=== PATIENT | female | born 1940 | race Caucasian/White ===

== ENCOUNTER 2016-06-05 11:56 | Inpatient (IN) | payer BC, OTHER ==
[~2016-06-05] VITALS: Ht 162.6 cm; Wt 44.7 kg
--- NOTE | ~2016-06-05 | EKG ---
[address] [employer] [place] [address] ELECTROCARDIOGRAM REPORT Name: LORRI ALVAREZ INGRID Room #: 215-P DIS IN M.R.#: [id number] Admission: 06/05/16 Attend Phys: Thee Zavala MD Discharge: 06/06/16 Date of : 44 Report #: [id number] THIS REPORT FOR: //name// 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 : 1940 Requested By: Emeka Kwon Order Number: [id number] MD: Emeka Kwon Measurements Intervals [place] Rate: 76 P: 83 FL: 146 QRS: 61 QRSD: 90 T: 49 QT: 419 QTc: 472 Interpretive Statements Sinus rhythm Minimal ST depression, anterolateral leads Compared to ECG 05/01/2015 17:58:56 Sinus rhythm has replaced atrial fibrillation Electronically Signed On 06-07-2016 8:10:50 CDT by Emeka Kwon [email or web address] <ELECTRONICALLY SIGNED> By: Emeka Kwon MD, [facility] 06/07/16 0810 0656 [id number] Emeka Kwon MD, [facility] /EPI
--- NOTE | ~2016-06-05 | H ---
[facility] [place] [address] HISTORY AND PHYSICAL Name: LORRI ALVAREZ Room #: 215-P ADM IN M.R.#: [id number] Admission: 06/05/16 Attend Phys: Thee Zavala MD Discharge: Date of : 44 Report #: [id number] THIS REPORT FOR: //name// CC: Reynaldo Zavala DATE OF SERVICE: 06/05/2016 CHIEF COMPLAINT: Dizziness and near syncope. HISTORY OF PRESENT ILLNESS: The patient is a 76-year-old female with history of hypertension, COPD, anxiety, chronic back pain, presented to the emergency room complaining of neck pain and dizziness. The patient stated that she has had this on and off neck pain, radiating down into her right shoulder. This started this morning after waking up. She felt like she might have slept wrong on her neck. On arrival to the emergency room, the patient was found to be in atrial fibrillation with rapid ventricular rate. Her initial heart rate was 180 per minute. According to the patient, and the patient's daughter, she has had nausea and vomiting over the last few days. No history of any diarrhea. She has had some mild abdominal discomfort. The patient has also had on and off dizziness, primarily when she stands up. She has had some near syncopal episode, but no loss of consciousness. No history of any chest pain. She denies any fever or chills to me. She has had chronic back pain with surgery and back. She has had a course of epidural injection. Last epidural injection was 3 weeks ago. PAST MEDICAL HISTORY: Significant for pancreatitis. She had macular degeneration. She is blind in both eyes, but worse in the left eye. History of glaucoma. She has history of COPD, history of spinal stenosis surgery, history of hysterectomy, appendectomy. She had a stomach surgery for a hole in the esophagus. Left hand surgery. She has history of depression and anxiety, tonsillectomy, nasal polyp removal, arthritis, kidney stone removal, left leg stent, which was placed for peripheral vascular disease. She had a right hip replacement, and also has history of diverticulitis. HOME MEDICATIONS: Reviewed, please look at the nursing documentation for home medications. ALLERGIES: She is allergic to MORPHINE, SULFA, PENICILLIN. Please look at the nursing documentation for the reaction. SOCIAL HISTORY: Still smokes 1 pack per day, smoked for more than 40 years. No history of alcohol abuse or illicit drug abuse. [place] [address] HISTORY AND PHYSICAL Name: LORRI ALVAREZ Room #: 215-P [facility] IN [facility].#: [id number] Admission: 06/05/16 Attend Phys: Thee Zavala MD Discharge: Date of : 44 Report #: [id number] FAMILY HISTORY: Significant for hypertension. Father had . Mother had coronary artery disease. REVIEW OF SYSTEMS: CONSTITUTIONAL: She has lost some weight, unable to quantify. No fever or chills. EYES: No change in vision. THROAT: Denies any sore throat. CARDIOVASCULAR: No palpitation. No chest pain. She has had dizziness and near syncopal episode. RESPIRATORY: No cough or expectoration. Mild shortness of breath. GASTROINTESTINAL: As above. GENITOURINARY: No dysuria or hematuria. NEUROLOGIC: No focal numbness or weakness of the extremity. PSYCHIATRIC: No history of anxiety and depression. A 12-point review of system is negative other than the positive and negative dictated in the history of present illness, and the review of system. PHYSICAL EXAMINATION: VITAL SIGNS: Blood pressure 91/56, heart rate is 110 per minute. Initially, she was 180 per minute. GENERAL: The patient is awake and alert, not in acute respiratory distress. HEENT: Pupils are equal and reactive to light, nonicteric conjunctivae. Throat appears normal. NECK: Supple. No JVD, no bruit, no lymphadenopathy. CARDIOVASCULAR SYSTEM: S1 and S2. She had no S3. Irregularly irregular. Tachycardic. CHEST: Bilateral air entry present. Clear on auscultation. ABDOMEN: Soft, bowel sounds present. No mass, no organomegaly, no tenderness. PERIPHERY: No pedal edema. No calf tenderness. Dorsalis pedis 1+. NEUROLOGICAL: No gross motor or sensory deficit. LABORATORY DATA: Reviewed. Initial EKG showed atrial fibrillation with RVR. There depression in II, III, and lateral leads. White count of 9.3, hemoglobin of 13.1, platelets 352. Her coagulation studies are normal. Chemistry showed sodium of 134, potassium is 3.4, BUN and creatinine are within normal limits. Her BUN and creatinine are 24 and 1.0. Lactic acid is 3.3. LFTs are not done so far. IMAGING: Chest x-ray showed no acute abnormality. ASSESSMENT AND PLAN: 1. Near syncope and dizziness, secondary to atrial fibrillation with rapid ventricular response. 2. Atrial fibrillation with rapid ventricular rate. The patient is presently on a Cardizem drip. She will be continued on IV fluid and Cardizem and heparin. [facility] [address] [place] [address] HISTORY AND PHYSICAL Name: LORRI ALVAREZ Room #: 215-P ADM IN M.R.#: [id number] Admission: 06/05/16 Attend Phys: Thee Zavala MD Discharge: Date of : 42 Report #: [id number] Cardiology has been consulted. We will obtain an echocardiogram to evaluate LV function. We will also check a TSH level. 3. The patient's blood pressure is borderline. She will need amiodarone drip, if she is not able to tolerate with Cardizem. 4. Chronic back pain. The patient will be continued on her present home medication that includes Neurontin and hydrocodone. 5. Anxiety. She will be continued on Xanax. 6. Hypokalemia. Potassium will be replaced. 7. Tobaccoism. The patient will be strongly advised to stop smoking. We will also order a nicotine patch. 8. History of chronic obstructive pulmonary disease. The patient will be continued on her Spiriva. Treatment plan has been explained to the patient, and the patient's daughter at bedside in detail. <ELECTRONICALLY SIGNED> By: Thee Zavala MD 06/06/16 [id number] Thee Zavala MD /nt
--- NOTE | ~2016-06-05 | 2DMMODE ---
[facility] [address] [place] [address] 2 D/M-MODE ECHOCARDIOGRAM Name: KIMLORRI INGRID Room #: 215-P ADM IN M.R.#: [id number] Admission: 06/05/16 Attend Phys: Didier Heredia Discharge: Date of : 44 Date of Service: 06/06/16 1032 Report #: [id number] THIS REPORT FOR: //name// APPROVED REPORT Study performed: 06/06/2016 08:33:03 EXAM: Comprehensive 2D, Doppler, and color-flow Echocardiogram Patient Location: Bedside Room #: 215 Blood Pressure: 122/50 mmHg HR: 82 bpm Other Information Study Quality: Good/Low parasternal window. Indications Atrial Fibrillation Hx: HTN, COPD 2D Dimensions RVDd: 30.34 mm LVEF(%): 57.52 (>50%) IVSd: 11.76 (7-11mm) LVOT Diam: 19.98 (18-24mm) LVDd: 40.32 mm PWd: 10.74 (7-11mm) LVDs: 28.28 (25-40mm) Aortic Root: 35.69 mm Lundberg's LVEF: 57.52 % Volumes Left Atrial Volume (Systole) Single Plane 4CH: 45.62 mL Single Plane 2CH: 43.58 mL LA ESV Index: 33.00 mL/m2 Aortic Valve AoV Peak Rowdy.: 1.88 m/s AO Peak Gr.: 14.16 mmHg LVOT Max P.95 mmHg LVOT Max V: 1.58 m/s Mitral Valve E/A Ratio: 0.9 MV Decel. Time: 320.47 ms [facility] [address] [place] [address] 2 D/M-MODE ECHOCARDIOGRAM Name: LORRI ALVAREZ INGRID Room #: 215-P ADM IN [facility].#: [id number] Admission: 06/05/16 Attend Phys: Didier Heredia Discharge: Date of : 44 Date of Service: 06/06/16 1032 Report #: [id number] MV E Max Rowdy.: 1.20 m/s MV A Rowdy.: 1.32 m/s MV PHT: 92.93 ms Pulmonary Valve PV Peak Rowdy.: 1.20 m/s PV Peak Gr.: 5.83 mmHg Pulmonary Vein P Vein S: 71.3 m/s P Vein D: 55.5 m/s Tricuspid Valve TR Peak Rowdy.: 2.23 m/s RAP Estimate: 10.00 mmHg TR Peak Gr.: 19.97 mmHg RVSP: 30.00 mmHg Left Ventricle The left ventricle is normal size. There is normal LV segmental wall motion. Borderline concentric left ventricular hypertrophy. Left ventricular systolic function is normal. LVEF is 65%. Grade I - abnormal relaxation pattern. Right Ventricle The right ventricle is normal size. The right ventricular systolic function is normal. Atria Left atrium is mildly dilated. The right atrium size is normal. Aortic Valve Aortic valve is thickened and calcified. No aortic regurgitation is present. There is no aortic valvular stenosis. Mitral Valve Mitral valve leaflets are mildly thickened. Moderate mitral annular calcification. Trace mitral regurgitation. No evidence of mitral valve stenosis. Tricuspid Valve The tricuspid valve is normal in structure. There is trace tricuspid regurgitation. The right atrial pressure is estimated at 10 mmHg. Estimated PAP is 30mmHg. Pulmonic Valve The pulmonary valve is normal in structure. Trace pulmonic regurgitation. [facility] [address] [place] [address] 2 D/M-MODE ECHOCARDIOGRAM Name: LORRI ALVAREZ INGRID Room #: 215-P ADM IN M.R.#: [id number] Admission: 06/05/16 Attend Phys: Didier Heredia Discharge: Date of : 44 Date of Service: 06/06/16 1032 Report #: [id number] Great Vessels The aortic root is normal in size. Ascending aorta is not well visualized. IVC is dilated and collapses <50% with inspiration. Pericardium There is no pericardial effusion. <Conclusion> The left ventricle is normal size. LVEF is 65%. Left atrium is mildly dilated. Aortic valve is thickened and calcified. Mitral valve leaflets are mildly thickened. Moderate mitral annular calcification. Trace mitral regurgitation. The tricuspid valve is normal in structure. There is trace tricuspid regurgitation. The right atrial pressure is estimated at 10 mmHg. Estimated PAP is 30mmHg. Trace pulmonic regurgitation. Ascending aorta is not well visualized. <ELECTRONICALLY SIGNED> By: Jame Beckwith MD 06/06/16 [phone] Jame Beckwith MD /INF
--- NOTE | ~2016-06-05 | EKG ---
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: YOLANDA : 1940 Requested By: Earline Arrieta Order Number: [id number] MD: Emeka Kwon Measurements Intervals [place] Rate: 180 P: [place]: QRS: 77 QRSD: 85 T: 25 QT: 295 QTc: 511 Interpretive Statements Atrial fibrillation with rapid V-rate Left ventricular hypertrophy ST depression, probably rate related Compared to ECG 05/01/2015 17:58:56 Left ventricular hypertrophy now present Sinus rhythm no longer present Electronically Signed On 06-06-2016 8:29:14 CDT by Emeka Kwon [email or web address] <ELECTRONICALLY SIGNED> By: Emeka Kwon MD, [facility] 06/06/16 0829 1204 1204 Emeka Kwon MD, [facility] /EPI
[~2016-06-05 11:56] MED LIST: ACIDOPHILUS1 EAC3 PO; ADVAIR 250-501 EACH INH; ADVAIR HFA115 MCG/21 INH; ALAVERT10 MG PO; ASA5UEC PO; ATIVAN0.5 MG PO; ATIVAN1 MG PO; AVELOX 400 MG400 MG PO; AZITHROMYCIN 2250 MG PO; B-12 COMPL1000 MCG/1 IJ; B12INJ; BACTRIM DS TAB1 EACH PO; CHEST CONGESTI1 EAC1 PO; CIPROFLOXACIN500 M1 PO; CLARITIN10 MG PO; COLACE100 MG; COLACE100 MG PO; COMBIVENT INH; CREON 10 CAPSUL1 CA1 PO; DETROL LA4 MG PO; DOXYCYCLINE 10100 MG PO; EXCEDRIN CAPLE1 EACH PO; FISH OIL 1,0001 EAC5 PO; FLAGYL500 MG PO; HEADACHE RELIE1 EAC4 PO; HYDROCODON-ACE1 EA12 PO; HYDROCODON-ACE1 EAC7 PO; HYDROCODON-ACE1 EAC8 PO; HYDROCODON-ACE1 EACH PO; LISINOPRIL-HCT1 EACH PO; LORATIDINE 10 M10 M1 PO; LUMIGAN2.5 ML OP; MEDROL DOSPAK21 TAB PO; MELOXICAM7.5 MG PO; MIRALAX17 GM PO; MOBIC7.5 MG PO; MUCINEX600 MG PO; MULTIVITAMINS PO; NEURONTIN600 MG PO; NEXIUM PO; NEXIUM40 MG PO; NICOTINE TRANSD21 M1; NICOTINE TRANSD21 M1 TRANSDERM; NORCO 10-325 T1 EACH; NORCO 5-325 TA1 EACH PO; ONDANSETRON HCL4 M2 PO; OXYCODONE HCL 55 MG PO; OXYCONTIN10 M1; PAIN & FEVER325 MG PO; PLAVIX 75 MG TA75 M1 PO; PREDNISONE 20 M20 M1 PO; PREDNISONE 20 M20 MG PO; PRIMATENE PO; PROTONIX40 M4 PO; PROVENTIL HFA6.7 G1 INH; ROBAXIN 750 MG750 M1 PO; SPIRIVA INH; SYMBICORT160 MCG/4. INH; SYSTANE 0.3-0.1 EACH OPHTHALMIC; TRAMADOL 50 MG50 MG PO; TYLENOL325 MG PO; VENTOLIN HFA 1818 GM INH; XARELTO10 MG PO; ZOFRAN ODT4 MG PO; ZOLOFT25 MG PO; ZPAK PO; [UNRECOGNIZED DRUG - OTHER] PO
[2016-06-05 12:01] VITALS: BP 89/61
[2016-06-05 12:18] LABS: HEMATOCRIT 39.1 % (37.0-47.0); HEMOGLOBIN 13.1 gm/dL (12.0-15.0); MCH 31.2 pg (26.0-34.0); MCHC 33.5 g/dL (28.0-37.0); MCV 92.9 fL (80.0-100.0); PLATELET COUNT 352 thou/uL (150-400); RBC 4.21 mil/uL (4.20-5.00); RDW 14.5 % (10.5-14.5); WBC 9.8 thou/uL (4.0-11.0)
[2016-06-05] MEDS ORDERED: XALATAN2.5 ML OPHTHALMIC (12:19)
[2016-06-05 12:21] LABS: MANUAL DIFF YES
[2016-06-05 12:25] LABS: ANION GAP 11 mmol/L (7-16); BUN 13 mg/dL (7-18); CALCIUM 8.2 mg/dL (8.5-10.1); CHLORIDE 99 mmol/L (98-107); CO2 24 mmol/L (21-32); GLUCOSE 148 mg/dL (74-106); POTASSIUM 3.4 mmol/L (3.5-5.1); SODIUM 134 mmol/L (136-145)
[2016-06-05 12:32] LABS: INR 1.1; PROTIME 11.2 Seconds (9.3-11.4)
[2016-06-05 12:40] LABS: TROPONIN-I 0.04 ng/mL (<0.04-0.07)
[2016-06-05 13:28] LABS: TOTAL CELL COUNT 100
[2016-06-05 13:29] LABS: ABSOLUTE NEUTROPHILS 7.4 thou/uL (1.4-8.2)
[2016-06-05 14:48] LABS: ALBUMIN 3.4 g/dL (3.4-5.0); ALKALINE PHOSPHATASE 135 U/L (46-116); DIRECT BILIRUBIN < 0.1 mg/dL (<0.1-0.3); MAGNESIUM 1.7 mg/dL (1.8-2.4); SGOT 44 U/L (15-37); SGPT 17 U/L (30-65); TOTAL BILIRUBIN 0.3 mg/dL (<0.1-1.0); TOTAL PROTEIN 6.7 g/dL (6.4-8.2)
[2016-06-05 16:01] VITALS: BP 121/74
[2016-06-05 20:05] VITALS: BP 101/56
[2016-06-06] VITALS (7 sets, daily range): BP systolic 115–141; BP diastolic 46–64
[2016-06-06 03:19] LABS: HEMATOCRIT 32.8 % (37.0-47.0); MCH 31.3 pg (26.0-34.0); MCHC 33.5 g/dL (28.0-37.0); MCV 93.5 fL (80.0-100.0); PLATELET COUNT 301 thou/uL (150-400); RBC 3.51 mil/uL (4.20-5.00); RDW 14.9 % (10.5-14.5); WBC 6.8 thou/uL (4.0-11.0)
[2016-06-06 03:21] LABS: MANUAL DIFF YES
[2016-06-06 03:34] LABS: ANION GAP 9 mmol/L (7-16); BUN 10 mg/dL (7-18); CALCIUM 8.2 mg/dL (8.5-10.1); CHLORIDE 105 mmol/L (98-107); CHOLESTEROL 122 mg/dL (<200); CO2 26 mmol/L (21-32); CREATININE 0.6 mg/dL (0.6-1.0); GLUCOSE 103 mg/dL (74-106); HDL CHOLESTEROL 37 mg/dL (>40); LDL CHOLESTEROL 74 mg/dL (<100); MAGNESIUM 1.7 mg/dL (1.8-2.4); SODIUM 140 mmol/L (136-145); TC:HDL 3.3 Ratio (Not establshd); TRIGLYCERIDE 59 mg/dL (<150); VLDL 12 mg/dL (<40)
[2016-06-06 04:09] LABS: GLYCOHEMOGLOBIN (HGB A1C) 5.5 % (4.8-5.6)
[2016-06-06 04:56] LABS: ABSOLUTE NEUTROPHILS 4.1 thou/uL (1.4-8.2); ANISOCYTOSIS SLIGHT; ATYPICAL LYMPHS 1 %; TOTAL CELL COUNT 100
[2016-06-06] MEDS ORDERED: PRADAXA75 MG PO ×2 (08:00→08:38)
[2016-06-06] MEDS ORDERED: FLECAINIDE ACET50 M1 PO (08:00)
[2016-06-06] MEDS ORDERED: CARDIZEM CD180 MG PO (08:38)
[2016-06-06] MEDS ORDERED: MAG-OXIDE400 MG PO (08:40)
[2016-06-06] MEDS ORDERED: ALBUTEROL2.5 MG/31 INH (11:54)
[2016-06-06] MEDS ORDERED: SPIRIVA INH (11:54)
== END 2016-06-06 14:30 | disposition home health service (06) | DRG 309 ==
LOC: ER 11:56 → 2N 12:57 → EROBS 12:57 → 2N 14:28
PROVIDERS: Emergency Medicine; Internal Medicine
DX: I48.91 Unspecified atrial fibrillation (principal); K86.1 Other chronic pancreatitis; D68.59 Other primary thrombophilia; R55 Syncope and collapse; H40.9 Unspecified glaucoma; J44.9 Chronic obstructive pulmonary disease, unspecified; M48.00 Spinal stenosis, site unspecified; F32.9 Major depressive disorder, single episode, unspecified; F41.9 Anxiety disorder, unspecified; M19.90 Unspecified osteoarthritis, unspecified site; Z96.641 Presence of right artificial hip joint; I95.9 Hypotension, unspecified; F17.210 Nicotine dependence, cigarettes, uncomplicated; K21.9 Gastro-esophageal reflux disease without esophagitis; G89.29 Other chronic pain; M54.9 Dorsalgia, unspecified; E87.6 Hypokalemia; I73.9 Peripheral vascular disease, unspecified; E83.42 Hypomagnesemia; Z90.710 Acquired absence of both cervix and uterus; Z90.49 Acquired absence of other specified parts of digestive tract; Z87.442 Personal history of urinary calculi; Z79.899 Other long term (current) drug therapy; Z98.42 Cataract extraction status, left eye; Z98.41 Cataract extraction status, right eye; Z95.5 Presence of coronary angioplasty implant and graft; Z88.6 Allergy status to analgesic agent; Z88.2 Allergy status to sulfonamides; Z88.0 Allergy status to penicillin; Z82.49 Family history of ischemic heart disease and other diseases of the circulatory system
CPT/HCPCS: 10194

== ENCOUNTER 2016-07-20 20:13 | Emergency (ER) | payer OTHER ==
[~2016-07-20] VITALS: Ht 162.6 cm; Wt 43.5 kg
--- NOTE | ~2016-07-20 | EKG ---
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: acosta ramey : 1940 Requested By: Ant Banks Order Number: [id number] MD: Emeka Kwon Measurements Intervals [place] Rate: 78 P: 90 [place]: 126 QRS: 66 QRSD: 90 T: 12 QT: 380 QTc: 433 Interpretive Statements Sinus rhythm Frequent supraventricular complexes Low voltage, extremity leads Borderline repolarization abnormality Compared to ECG 06/06/2016 06:56:29 Atrial premature complex(es) now present Electronically Signed On 07-22-2016 15:48:28 CDT by Emeka Kwon [email or web address] <ELECTRONICALLY SIGNED> By: Emeka Kwon MD, [facility] 07/22/16 1548 31 31 Emeka Kwon MD, [facility] /EPI
[~2016-07-20 20:13] MED LIST changes: +ALBUTEROL2.5 MG/31 INH; +CARDIZEM CD180 MG PO; +FLECAINIDE ACET50 M1 PO; +MAG-OXIDE400 MG PO; +PRADAXA75 MG PO; +XALATAN2.5 ML OPHTHALMIC
[2016-07-20 20:52] LABS: ABSOLUTE NEUTROPHILS 4.1 thou/uL (1.4-8.2); BASOPHILS 1.5 % (0.0-2.0); EOSINOPHILS 2.6 % (0.0-3.0); HEMATOCRIT 33.7 % (37.0-47.0); HEMOGLOBIN 11.4 gm/dL (12.0-15.0); LYMPHOCYTES 32.6 % (24.0-44.0); MCH 31.8 pg (26.0-34.0); MCHC 33.9 g/dL (28.0-37.0); MCV 93.8 fL (80.0-100.0); MONOCYTES 11.2 % (1.0-8.0); PLATELET COUNT 423 thou/uL (150-400); POLYS 52.1 % (36.0-66.0); RBC 3.59 mil/uL (4.20-5.00); RDW 16.2 % (10.5-14.5); WBC 7.8 thou/uL (4.0-11.0)
[2016-07-20 20:55] LABS: MANUAL DIFF NO
[2016-07-20 21:00] LABS: ANION GAP 11 mmol/L (7-16); BUN 10 mg/dL (7-18); CALCIUM 8.5 mg/dL (8.5-10.1); CHLORIDE 98 mmol/L (98-107); CO2 25 mmol/L (21-32); CREATININE 0.8 mg/dL (0.6-1.0); GLUCOSE 92 mg/dL (74-106); POTASSIUM 3.2 mmol/L (3.5-5.1); SODIUM 134 mmol/L (136-145)
[2016-07-20 21:08] LABS: TROPONIN-I < 0.04 ng/mL (<0.04-0.07)
[2016-07-20] MEDS ORDERED: PREDNISONE10 MG PO (21:33)
[2016-07-20] MEDS ORDERED: CEFUROXIME500 MG PO (21:33)
[2016-07-20] MEDS ORDERED: ONDANSETRON HCL4 M2 PO (21:57)
[2016-07-20 22:40] VITALS: BP 160/77
== END 2016-07-20 22:41 | disposition home or self-care (01) ==
LOC: ER 20:13
PROVIDERS: Emergency Medicine
DX: J44.1 Chronic obstructive pulmonary disease with (acute) exacerbation (principal); R11.2 Nausea with vomiting, unspecified; R51 Headache; F17.210 Nicotine dependence, cigarettes, uncomplicated; Z98.42 Cataract extraction status, left eye; Z98.41 Cataract extraction status, right eye; Z88.5 Allergy status to narcotic agent; Z88.0 Allergy status to penicillin; Z88.2 Allergy status to sulfonamides

== ENCOUNTER 2016-10-25 13:30 | Emergency (ER) | payer OTHER ==
[~2016-10-25] VITALS: Ht 162.6 cm; Wt 42.2 kg
[~2016-10-25 13:30] MED LIST changes: +CEFUROXIME500 MG PO; +PREDNISONE10 MG PO
[2016-10-25 14:30] LABS: HEMATOCRIT 33.8 % (37.0-47.0); HEMOGLOBIN 11.2 gm/dL (12.0-15.0); MANUAL DIFF YES; MCH 29.6 pg (26.0-34.0); MCHC 33.2 g/dL (28.0-37.0); PLATELET COUNT 532 thou/uL (150-400); RDW 16.3 % (10.5-14.5); WBC 6.5 thou/uL (4.0-11.0)
[2016-10-25] MEDS ORDERED: WELLBUTRIN SR150 MG PO (14:41)
[2016-10-25] MEDS ORDERED: ELIQUIS5 MG PO (14:41)
[2016-10-25 14:44] LABS: CALCIUM 9.1 mg/dL (8.5-10.1); CREATININE 0.7 mg/dL (0.6-1.0); POTASSIUM 4.1 mmol/L (3.5-5.1)
[2016-10-25] MEDS ORDERED: LASIX 20 MG TAB20 MG PO (14:44)
[2016-10-25] MEDS ORDERED: CARTIA XT180 M1 PO (14:44)
[2016-10-25 14:54] LABS: ABSOLUTE NEUTROPHILS 4.3 thou/uL (1.4-8.2); TOTAL CELL COUNT 100
[2016-10-25 14:55] VITALS: BP 144/81
[2016-10-25 15:37] LABS: URINE BILIRUBIN NEGATIVE (Negative); URINE BLOOD NEGATIVE (Negative); URINE COLOR YELLOW; URINE GLUCOSE-RANDOM* NEGATIVE (Negative); URINE KETONES NEGATIVE (Negative); URINE PROTEIN (DIPSTICK) NEGATIVE (Negative); URINE UROBILINOGEN 0.2 E.U./dl (0.2-1.0)
[2016-10-25 15:39] LABS: URINE LEUKOCYTES-REFLEX TRACE (Negative)
[2016-10-25 15:47] LABS: SQUAMOUS 4-10 Moderate /LPF (0-3); URINE RBC None Seen /HPF (0-2)
[2016-10-25 15:48] LABS: CASTS None Seen /LPF (None Seen); CRYSTALS None Seen /LPF (None Seen); URINE WBC-REFLEX 0-5 Rare /HPF (0-5)
[2016-10-25] MEDS ORDERED: KEFLEX500 MG PO (15:58)
== END 2016-10-25 16:56 | disposition home or self-care (01) ==
LOC: ER 13:30
PROVIDERS: Emergency Medicine
DX: G89.29 Other chronic pain (principal); N39.0 Urinary tract infection, site not specified; F17.210 Nicotine dependence, cigarettes, uncomplicated; J44.9 Chronic obstructive pulmonary disease, unspecified; Z88.5 Allergy status to narcotic agent; Z88.2 Allergy status to sulfonamides; Z88.0 Allergy status to penicillin

== ENCOUNTER 2016-10-28 00:13 | Emergency (ER) | payer OTHER ==
[~2016-10-28] VITALS: Ht 162.6 cm; Wt 42.2 kg
--- NOTE | ~2016-10-28 | EKG ---
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: [facility] : 1940 Requested By: Jonathan Ramirez Order Number: [id number] MD: Emeka Kwon Measurements Intervals [place] Rate: 76 P: 83 NV: 141 QRS: 65 QRSD: 91 T: 77 QT: 395 QTc: 445 Interpretive Statements Sinus rhythm Borderline low voltage, extremity leads Minimal ST depression, anterolateral leads Compared to ECG 07/20/2016 20:32:56 No significant change was found Electronically Signed On 10-28-2016 13:38:30 CDT by Emeka Kwon [email or web address] <ELECTRONICALLY SIGNED> By: Emeka Kwon MD, [facility] 10/28/16 1338 0019 Emeka Kwon MD, [facility] /EPI
[~2016-10-28 00:13] MED LIST changes: +CARTIA XT180 M1 PO; +ELIQUIS5 MG PO; +KEFLEX500 MG PO; +LASIX 20 MG TAB20 MG PO; +WELLBUTRIN SR150 MG PO
[2016-10-28 00:33] LABS: HEMOGLOBIN 11.9 gm/dL (12.0-15.0)
[2016-10-28 00:34] LABS: HEMATOCRIT 35.5 % (37.0-47.0); MCH 29.9 pg (26.0-34.0); MCHC 33.7 g/dL (28.0-37.0); MCV 88.7 fL (80.0-100.0); PLATELET COUNT 496 thou/uL (150-400); RDW 16.1 % (10.5-14.5); WBC 7.2 thou/uL (4.0-11.0)
[2016-10-28 00:37] LABS: MANUAL DIFF YES
[2016-10-28 00:40] LABS: ANION GAP 9 mmol/L (7-16); BUN 6 mg/dL (7-18); CALCIUM 8.7 mg/dL (8.5-10.1); CHLORIDE 94 mmol/L (98-107); CO2 25 mmol/L (21-32); CREATININE 0.4 mg/dL (0.6-1.0); GLUCOSE 113 mg/dL (74-106); POTASSIUM 4.5 mmol/L (3.5-5.1); SODIUM 128 mmol/L (136-145)
[2016-10-28 00:45] LABS: APTT 26.4 Seconds (24.5-32.8); PROTIME 9.7 Seconds (9.3-11.4)
[2016-10-28 00:49] LABS: ALKALINE PHOSPHATASE 81 U/L (46-116); SGOT 38 U/L (15-37); SGPT 13 U/L (30-65); TOTAL BILIRUBIN 0.5 mg/dL (<0.1-1.0); TOTAL PROTEIN 6.7 g/dL (6.4-8.2); TROPONIN-I < 0.04 ng/mL (<0.04-0.07)
[2016-10-28 01:00] LABS: ALBUMIN 3.4 g/dL (3.4-5.0); MAGNESIUM 1.6 mg/dL (1.8-2.4)
[2016-10-28 01:07] LABS: TOTAL CELL COUNT 100
[2016-10-28 01:08] LABS: ANISOCYTOSIS 1+; LARGE PLATELETS FEW
[2016-10-28] MEDS ORDERED: PREDNISONE 20 M20 MG PO (01:32)
[2016-10-28] MEDS ORDERED: ATIVAN0.5 MG PO (01:32)
[2016-10-28] MEDS ORDERED: VENTOLIN HFA 1818 GM INH (01:35)
[2016-10-28] MEDS ORDERED: ALBUTEROL2.5 MG/31 INH (01:35)
[2016-10-28 01:38] VITALS: BP 150/80
== END 2016-10-28 02:10 | disposition home or self-care (01) ==
LOC: ER 00:13
PROVIDERS: Emergency Medicine
DX: J44.9 Chronic obstructive pulmonary disease, unspecified (principal); F41.9 Anxiety disorder, unspecified; I48.2 Chronic atrial fibrillation; F17.210 Nicotine dependence, cigarettes, uncomplicated; Z88.5 Allergy status to narcotic agent; Z88.2 Allergy status to sulfonamides; Z88.0 Allergy status to penicillin